=== PATIENT | male | born 1985 | race Hispanic/Latino ===

== ENCOUNTER 2019-09-23 11:51 | Inpatient (IN) | payer OTHER, SELFPAY ==
[2019-09-23] MEDS ORDERED: Adacel (T-DAP) 0.5 ML SYRINGE ONE (12:24)
[2019-09-23] MEDS ORDERED: Dextrose 50% Abboject 50 ML SYRINGE SLOW IVP PRN ×2 (13:27→19:45)
[2019-09-23] MEDS ORDERED: Ondansetron ODT 4 MG TAB PO PRN ×2 (13:27→19:48)
[2019-09-23] MEDS ORDERED: HumaLOG 300 UNITS/3 ML VIAL SC PRN ×2 (13:27→19:45)
[2019-09-23] MEDS ORDERED: Morphine 4 MG/ML VIAL SLOW IVP PRN ×2 (13:27→19:47)
[2019-09-23] MEDS ORDERED: hydrALAZINE 20 MG/ML VIAL SLOW IVP PRN ×2 (13:27→19:46)
[2019-09-23] MEDS ORDERED: Morphine 2 MG/ML SYRINGE SLOW IVP PRN ×2 (13:27→19:46)
[2019-09-23] MEDS ORDERED: Dextrose 5% in Water 1,000 ML IV PRN ×2 (13:27→19:44)
[2019-09-23] MEDS ORDERED: traMADol HCl 50 MG TAB PO PRN ×4 (13:32→19:50)
[2019-09-23] MEDS ORDERED: Morphine 4 MG/ML VIAL ONE (13:39)
[2019-09-23 13:43] LABS: #Basophils 0.1 thou/uL (0.0-0.2); #Eosinphils 0.2 thou/uL (0.0-0.7); #Lymphocytes 1.4 thou/uL (1.20-3.40); #Monocytes 0.5 thou/uL (0.11-0.59); #Neutrophils 4.6 thou/uL (1.40-6.50); %Basophils 1.5 % (0.0-1.0); %Eosinophils 2.4 % (0.0-10.0); %Lymphocytes 20.9 % (21.0-51.0); %Neutrophils 68.3 % (42.0-75.0); Hemoglobin 14.6 g/dL (14.0-18.0); Mean Corpuscular HGB CONC 34.1 g/dL (32.0-36.0); Mean Corpuscular Hemoglobin 31.9 pg (27.0-31.0); Mean Corpuscular Volume 93.6 fL (78.0-98.0); Mean Platelet Volume 8.3 fL (7.4-10.4); Platelet Count 229 thou/uL (130-400); RBC Distribution Width 11.8 % (11.5-14.5); White Blood Cell (WBC) Count 6.8 thou/uL (4.8-10.8)
[2019-09-23] MEDS ORDERED: CEFAZOLIN 1 GM VIAL SLOW IVP SCH (14:00)
[2019-09-23] MEDS ORDERED: Acetaminophen 500 MG TAB PO SCH (14:00)
[2019-09-23 14:05] LABS: ALT (SGPT) 21 U/L (8-55); AST (SGOT) 17 U/L (5-34); Albumin 4.2 g/dL (3.5-5.0); Alkaline Phosphatase 70 U/L (40-110); Anion Gap 16 mmol/L (10-20); BUN (Urea Nitrogen) 12 mg/dL (8.9-20.6); Bilirubin, Total 0.5 mg/dL (0.2-1.2); CK (CPK) 245 U/L (30-200); Calc. Creatinine Clearance 0 mL/min (70-130); Calcium 8.6 mg/dL (7.8-10.44); Carbon Dioxide 22 mmol/L (22-29); Chloride 105 mmol/L (98-107); Estimated GFR-MDRD 69; Globulin 2.4 g/dL (2.4-3.5); Glucose 137 mg/dL (70-105); Potassium 3.7 mmol/L (3.5-5.1); Protein, Total 6.6 g/dL (6.0-8.3); Sodium 139 mmol/L (136-145)
[2019-09-23] MEDS ORDERED: CEFAZOLIN 2 GM in Premix Bag 1 BAG IVPB SCH ×3 (15:00→20:00)
--- NOTE | 2019-09-23 15:17 | RAD ---
LEFT WRIST THREE VIEWS: 09/23/19 INDICATION: History of cutting left wrist at work. COMPARISON: None. FINDINGS: There is laceration involving the left wrist. No radiopaque foreign body is noted. No definite acute osseous abnormality is noted. IMPRESSION: Left wrist soft tissue laceration. No radiopaque foreign body. POS: BH
--- NOTE | 2019-09-23 15:17 | RAD ---
CHEST ONE VIEW: 09/23/19 INDICATION: History of cut left wrist with aluminum at work. COMPARISON: None. FINDINGS: The lungs are clear. Heart size is normal appearing. No pleural effusion or pneumothorax is evident. There is healed fracture deformity involving the right clavicle. IMPRESSION: No definite acute cardiopulmonary abnormality. POS: BH
--- NOTE | 2019-09-23 16:19 | CON ---
DATE OF CONSULTATION: This is Migel Baeza PA-C dictating a report for Dax Lunsford MD. DICTATED FOR: Gregorio Potts MD HISTORY OF PRESENT ILLNESS: We were asked by emergency room to see the patient. The patient was at work today. 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 Per exercise physiologist certified, he is a young male, who does not speak any Uzbek, so we have an exercise physiologist certified in the room. He is in quite a bit of pain, but no numbness and tingling to the fingers. 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 PAST MEDICAL HISTORY: Healthy. PAST SURGICAL HISTORY: Surgeries none. CURRENT MEDICATIONS: None. ALLERGIES: NO KNOWN DRUG ALLERGIES. SOCIAL HISTORY: No alcohol, nicotine, or illicit drug use. 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 FAMILY HISTORY: For this visit is noncontributory. REVIEW OF SYSTEMS: Healthy except for pain in left wrist on the volar side. Rest of review of systems negative. PHYSICAL EXAMINATION: GENERAL: Well-nourished, well-developed male, resting on the gurney in room 7, in moderate amount of distress. His speech per exercise physiologist certified is clear. Answers questions appropriately. He is alert and oriented x3. HEENT: Face symmetric. Tongue midline. NECK: Supple. Trachea midline. RESPIRATORY: Respiratory rate 16, in no acute distress. EXTREMITIES: Upper extremities equal size, shape, and symmetry. Normal bulk and tone with the exception of he does have a full-thickness avulsed flap to the volar wrist. It the area is quite painful to the patient, but it does appear that he has one tendon that is possibly severed. He has good strength sensations. 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 The patient does not tolerate the probing, removing the tissue on the wound very well. ASSESSMENT: Laceration to the volar left wrist with possible tendon disruption. PLAN: I spoke with Dr. Potts, I explained the patient's situation. He would like to have him admitted. I told Dr. Soto that he just needs a wet-to-dry dressing and a small splint and Dr. Potts will talk to the patient tonight and plan on doing surgery tomorrow. The patient has been consented. Antibiotics have been ordered since this was traumatic injury. Trauma has admitted the patient and placed orders. I did put orders in for the consent, some antibiotics prior to surgery. Again, Dr. Potts is going to talk to the patient this evening. He has already been added onto the surgery schedule. Job ID: [id number]
[2019-09-23] MEDS ORDERED: Ibuprofen 600 MG TAB PO SCH (18:00)
[2019-09-23] MEDS: Senokot S 8.6-50 MG TAB PO SCH (20:51)
[2019-09-23] MEDS: Acetaminophen 500 MG TAB PO SCH (20:51)
[2019-09-23] MEDS: Famotidine 20 MG TAB PO SCH (20:52)
[2019-09-23] MEDS: ceFAZolin 1 GM/D5W 1 GM in Premix Bag 1 BAG IVPB SCH ×2 (20:55→21:00)
[2019-09-23] MEDS ORDERED: Famotidine 20 MG TAB PO SCH (21:00)
[2019-09-23] MEDS ORDERED: Senokot S 8.6-50 MG TAB PO SCH (21:00)
[2019-09-23] MEDS ORDERED: ceFAZolin 1 GM/D5W 1 GM in Premix Bag 1 BAG IVPB SCH (22:00)
--- NOTE | 2019-09-23 22:14 | PRG ---
DATE OF SERVICE: 09/23/2019 SUBJECTIVE: The patient is currently on the surgical floor. He was admitted earlier today after he sustained a laceration to the volar surface of his left wrist that is currently planned for exploration by Dr. Potts tomorrow. At the time of visit, the patient was having some pain, but otherwise had no issues at this time. The patient is tolerating a diet this time, and he will be n.p.o. after midnight. OBJECTIVE: VITAL SIGNS: Stable. The patient is afebrile. GENERAL: The patient is resting comfortably in bed. He is awake, alert, conversant. He speaks just nothing listed, I was able to get through my exam with him. LUNGS: His respirations are nonlabored. ABDOMEN: Nondistended. EXTREMITIES: Neurovascularly intact x4. Left upper extremity has clean, dry, and intact dressing and splint. Capillary refill is less than 3 seconds. The patient has sensation in all of his digits and is able to give a thumbs up. ASSESSMENT AND PLAN: Status post laceration to left wrist, volar surface. PLAN: Plan will be to make the patient n.p.o. after midnight. Continue pain control, antibiotics per Hand Surgery, and postoperatively, we will evaluate for discharge. Job ID: [id number]
[2019-09-23] MEDS: Sodium Chloride 0.9% 1,000 ML IV SCH (23:40)
[2019-09-23] MEDS: Ibuprofen 600 MG TAB PO SCH (23:41)
[2019-09-24] MEDS ORDERED: Sodium Chloride 0.9% 1,000 ML IV SCH (00:01)
[2019-09-24] MEDS: ceFAZolin 1 GM/D5W 1 GM in Premix Bag 1 BAG IVPB SCH ×4 (00:22→18:01)
[2019-09-24] MEDS: Acetaminophen 500 MG TAB PO SCH ×3 (02:23→14:48)
--- NOTE | 2019-09-24 05:50 | HP ---
REQUESTING PHYSICIAN: Dr. Soto. CONSULTING PHYSICIAN: Dr. Potts. HISTORY OF PRESENT ILLNESS: Mr. Edge is a 34-year-old male, presented to the ED after an accident at work. The patient reports he was working with a metal sheet, where he accidentally got cut through his left wrist. Bleeding was medium, and upon arrival in the ED, bleeding has been stopped. The patient reports neurovascularly intact of the left finger. Vital signs have been stable. REVIEW OF SYSTEMS: Noncontributory except as per HPI. PAST MEDICAL HISTORY: None. PAST SURGICAL HISTORY: None. SOCIAL HISTORY: The patient drinks socially. Denies smoking. Denies drug use. CURRENT MEDICATIONS: None. ALLERGIES: ALLERGY TO MEDICATION NONE. PHYSICAL EXAMINATION: GENERAL: Currently, the patient lying in bed comfortably with no acute respiratory distress. VITAL SIGNS: Heart rate 57, respiratory rate 18, temperature 97.3, O2 saturation 99% on room air, and blood pressure 120/74. LUNGS: Clear bilaterally. HEART: Regular rate and rhythm. ABDOMEN: Soft, nondistended. EXTREMITIES: Left, there is a 4 to 5 cm clean cut of the distal volar side of forearm. Bleeding has been stopped. Full thickness, exposed some tendon sheath, bone is invisible. Neurovascularly intact of the left finger. Capillary refill of left finger is less than 2 seconds. Gross sensory intact. IMAGING: Left wrist x-ray, no fracture. LABORATORY DATA: Showed glucose 137, sodium 139, potassium 3.7. White count 6.8 and hemoglobin 14.6. ASSESSMENT: 1. Status post got cut by a piece of metal at work. 2. Full-thickness left wrist laceration. PLAN: The patient will be admitted to [place] [id number] for pain control, initiate gastritis prophylaxis, pulmonary toilet. Initiate nonpharmacological DVT prophylaxis. The patient will be n.p.o. at midnight. The patient will need to go to the OR with Dr. Potts for left wrist tendon fixation. Job ID: [id number]
[2019-09-24] MEDS: Sodium Chloride 0.9% 1,000 ML IV SCH ×2 (06:22→14:48)
[2019-09-24] MEDS: Ibuprofen 600 MG TAB PO SCH ×3 (06:25→18:01)
[2019-09-24 08:21] VITALS: BP 121/77
[2019-09-24] MEDS ORDERED: Polyethylene Glycol 3350 17 GM Packet PO SCH ×2 (09:00)
[2019-09-24] MEDS: Famotidine 20 MG TAB PO SCH (10:05)
[2019-09-24] MEDS: Senokot S 8.6-50 MG TAB PO SCH (10:05)
[2019-09-24] MEDS ORDERED: Fentanyl 100 MCG/2 ML VIAL ONE ×2 (10:50→13:42)
[2019-09-24] MEDS ORDERED: Midazolam HCl 2 mg/2 ml Vial ONE (10:50)
[2019-09-24] MEDS ORDERED: Bacitracin Zinc Ointment 30 gm TUBE ONE (10:57)
[2019-09-24] MEDS ORDERED: Bupivacaine PF 0.5% 30 ML VIAL ONE (10:57)
[2019-09-24] MEDS ORDERED: Glycopyrrolate 0.2 MG/ML 5 ML SYRINGE ONE (11:44)
[2019-09-24] MEDS ORDERED: Dexamethasone 20 MG/5 ML VIAL ONE (11:44)
[2019-09-24] MEDS ORDERED: Lidocaine 1% PF 5 ML VIAL ONE (11:44)
[2019-09-24] MEDS ORDERED: Ondansetron PF 4 MG/2 ML Vial ONE (11:44)
[2019-09-24] MEDS ORDERED: PROPOFOL 200 MG/20 ML VIAL ONE (11:44)
[2019-09-24] MEDS ORDERED: Ketorolac Tromethamine 30 MG/ML VIAL ONE (11:44)
[2019-09-24] MEDS ORDERED: Succinylcholine Chloride 20 MG/ML 10 ml SYRINGE FS ONE (11:44)
[2019-09-24] MEDS ORDERED: Promethazine HCl 25 MG/ML VIAL SLOW IVP PRN (13:25)
[2019-09-24] MEDS ORDERED: Ondansetron HCl/PF 4 MG/2 ML Vial IVP PRN (13:25)
[2019-09-24] MEDS ORDERED: Promethazine HCl 25 MG/ML VIAL IM PRN (13:25)
--- NOTE | 2019-09-24 14:26 | EKG ---
Test Reason : Blood Pressure : / mmHG Vent. Rate : 077 BPM Atrial Rate : 077 BPM P-R Int : 154 ms QRS Dur : 100 ms QT Int : 370 ms P-R-T Axes : 039 063 002 degrees QTc Int : 418 ms Normal sinus rhythm Normal ECG Confirmed by NASH KENDRICK DO ([id number]), technical editor JANNETH KENT ([id number]) on 09/24/2019 2:25:27 PM Referred By: Confirmed By:NASH KENDRICK DO
[2019-09-24 16:11] VITALS: TEMP 97.3
--- NOTE | 2019-09-24 19:23 | OP ---
DATE OF PROCEDURE: 09/24/2019 PREOPERATIVE DIAGNOSES: 1. Median nerve neurapraxia, right wrist. 2. 5 cm laceration, right wrist with at least palmaris and flexor carpi radialis tendon laceration. POSTOPERATIVE DIAGNOSES: 1. Median nerve neurapraxia, right wrist. 2. 5 cm laceration, right wrist with at least palmaris and flexor carpi radialis tendon laceration. FINDINGS: 1. Median nerve intact to include the primary palmar cutaneous sensory branch. 2. Complete palmaris longus and flexor carpi radialis laceration just proximal to the carpal tunnel. PROCEDURES PERFORMED: 1. Median nerve neuroplasty. 2. Application of short-arm splint. 3. Wound debridement, depth down to including tendon, but not bone or joint (59855) level. 4. 5 cm wound closure. 5. Repair of palmaris longus and flexor carpi radialis tendons using 6-strand technique. DESCRIPTION OF PROCEDURE: After patient had been counseled to include a Welsh speech language assistant, he was brought to the operating room, where he underwent prep and drape and a time-out was done appropriately. We exsanguinated the limb, inflated tourniquet to 250 mmHg pressure. On exam, he had not had FPL, FDS, FDP laceration , but immediately we performed median nerve neuroplasty and saw that he had 100% laceration in palmaris longus and flexor carpi radialis in between the median nerve was buried underneath the flexor digitorum muscle belly. These tendon levels were not violated as well. For this reason, we then debrided the wound edges using the following techniques: 1. A. Excisional technique. 2. B. Use of tenotomy scissors, Dunnell blade, 11 blade knife, Adson's, and 3 L normal saline irrigation. After this, the wound was clean. We then repaired first the palmaris longus and then the flexor carpi radialis with the wrist flexed to 20 degrees using Robe 6-strand technique, over-sew with a 5-0 Prolene with excellent apposition and no gapping to 30 degrees of extension. Wrist remained in slight palmar flexion. We released the tourniquet. We closed the wound with interrupted 4-0 nylon in a mattress pattern and the patient left the operating room in a splint with the wrist at 20 degrees of flexion, the MP joint full extension at the PIP and the MP joints at 45 degrees of flexion. His digits were pink. There was no evidence of anesthetic or operative complication. Job ID: [id number]
--- NOTE | 2019-09-27 05:43 | PQF ---
Daxa Edge DARRYL [id number] CLINICAL DOCUMENTATION CLARIFICATION FORM: POST DISCHARGE Addendum to original discharge summary date: ____ Late entry note date: __ DATE:09/27/2019 ATTN: Gregorio Diez Please exercise your independent, professional judgment in responding to the clarification form. Clinical indicators are provided on the bottom of this form for your review Please check appropriate box(s): Excisional Debridement: Depth / layer: (deepest layer of debridement): [ ] Skin[ ] SubQ Tissue [ ] Fascia [ ] Muscle [ ] Tendon [ ] Bone [ ] Other procedure diagnosis [ ] Unable to determine For continuity of documentation, please document condition throughout progress notes and discharge summary. Thank You. CLINICAL INDICATORS - SIGNS / SYMPTOMS / LABS Operative report 09/23 Wound debridement, depth down to including tendon, but not bone or joint Operative report 09/23 Had 00% laceration in palmaris longus and flexor or carpi radialis in between the median nerve was buried underneath the flexor digitorum muscle lorin, these tendon levels were not violated well. Operative report 09/23 debrided the wound edge using excisional technique RISK FACTORS H&P 09/22 34 year-old Male H&P p2 09/22 Full-thickness left wrist laceration Operative report p1 09/23 Median Nerve Neurapraxia, right wrist Operative report 09/23 5cm Laceration, right wrist with at least palmaris and flexor carpi radialis tendon laceration TREATMENT Operative report p1 09/23 Median nerve neuroplasty Operative report 09/23 Wound Debridement Operative report 09/23 Repair of palmaris longus and flexor carpi tendons JUL 27 IV Ancef 1gm JUL 28 IV Vancomycin JUL 28 Bactrim 30mg ointment (This form is maintained as a part of the permanent medical record) 2014 [employer]. All Rights Reserved [email or web address]
--- NOTE | 2019-09-27 05:44 | PQF ---
Daxa Edge DARRYL [id number] CLINICAL DOCUMENTATION CLARIFICATION FORM: POST DISCHARGE Addendum to original discharge summary date: ____ Late entry note date: __ DATE:09/27/2019 ATTN:Gregorio Diez Please exercise your independent, professional judgment in responding to the clarification form. Clinical indicators are provided on the bottom of this form for your review Please check appropriate box(s): Conflicting documentation was noted in the Medical Record, please clarify if patient is being treated/monitored for: [ ] Left Wrist Laceration [ ] Right Wrist Laceration [ ] Other diagnosis [ ] Unable to determine For continuity of documentation, please document condition throughout progress notes and discharge summary. Thank You. 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 Reports was working with a metal sheet, where he accidentally got cut hrough his left wrist Operative report 09/23 Median Nerve Neurapraxia, right wrist Operative report 09/23 5cm Laceration, right wrist with at least palmaris and Flexor carpi radialis tendon laceration Wrist Xray 09/22 Impression:Left wrist soft tissue laceration Consult pg 2 09/22 Laceration to the volar left wrist with possible tendon disruption H&P 09/22 dr colvin extremities:Left there is a 4 to 5 cm clean cut of the distal volar side of forearm RISK FACTORS H&P 09/22 34 year-old Male H&P p2 09/22 Full-thickness left wrist laceration TREATMENT Operative report p1 09/23 Median nerve neuroplasty Operative report 09/23 Wound Debridement Operative report 09/23 Repair of palmaris longus and flexor carpi tendons MAR 4/30 IV Ancef 1gm MAR 09/23 IV Vancomycin MAR 09/23 Bactrim 30mg oitment Collected 09/22- Wrist Xray (This form is maintained as a part of the permanent medical record) 2014 [employer]. All Rights Reserved [email or web address]
--- NOTE | 2019-09-27 09:20 | DIS ---
DATE OF ADMISSION: 09/23/2019 DATE OF DISCHARGE: 09/24/2019 ADMISSION DIAGNOSES: 1. Status post metal cut of the left wrist. 2. Median nerve neurapraxia of the left wrist. 3. 5 cm laceration of the left wrist. DISCHARGE DIAGNOSES: 1. Status post metal cut on the left wrist at work. 2. Median nerve neurapraxia of the left wrist. 3. 5 cm laceration with at least palmaris and flexor carpi radialis tendon laceration of the left wrist, status post repair. CONSULTING PHYSICIAN: Dr. Potts. PROCEDURES PERFORMED: 1. Left wrist median nerve neuroplasty. 2. Wound debridement. 3. 5 cm of left wrist wound closure. 4. Repair of palmaris longus and flexor carpi radialis tendons. HOSPITAL COURSE: Mr. Edge is a 34-year-old male, Emirati speaking, who was injured at work. The patient reports he was working with a piece of sharp metal. The sharp metal accidentally cut his volar side of his left wrist, injured medial nerve and tendon. The patient underwent median nerve neuroplasty and palmaris tendon fixation, and also, wound debridement and closure with Dr. Potts. The patient tolerated procedure well. Postoperatively, the patient is doing good. Pain is well controlled. His left hand function is almost normal. Gross sensory intact. The patient tolerated with his regular diet. His vital signs are stable. His urine is adequate. He is approved to discharge home per Dr. Potts. PHYSICAL EXAMINATION: GENERAL: The patient is lying down in bed, comfortable with no acute respiratory distress. VITAL SIGNS: Temperature 97.3, heart rate 63, respiratory rate 18, O2 saturation 99% on room air, blood pressure 121/77. LUNGS: Clear bilaterally. HEART: Regular rate and rhythm. ABDOMEN: Soft and nondistended. EXTREMITIES: Neurovascularly intact x4. Left upper extremity gross sensory intact, and capillary refill is less than 2 seconds. DISCHARGE DISPOSITION: Home. DISCHARGE CONDITION: Good. DISCHARGE INSTRUCTIONS: The patient is to take medications as directed. The patient is to take back treatment for 6 days, pain medication p.r.n. The patient is to see Dr. Potts on September 29, at 11:30 a.m. DISCHARGE MEDICATIONS: 1. Bactrim 1 tablet b.i.d. for 6 days. 2. Tylenol No. 3 one tablet every 6 hours p.r.n. for pain. 3. Tylenol and ibuprofen p.r.n. for pain. Job ID: [id number]
--- NOTE | 2019-10-03 19:26 | OP ---
DATE OF PROCEDURE: 09/24/2019 He has a report number already done of [id number]. I would like to make correction to that report as follows: 1. Everywhere the word right appears to be changed to the left that would be in the preop diagnosis, median nerve neurapraxia change to left wrist. 2. 5 cm laceration change to left wrist. Under postop diagnosis, change 1 and 2 right to the left and that may be the only place where the site actually appears. Job ID: [id number]
== END 2019-09-24 19:40 | disposition home or self-care (01) | DRG 502 ==
LOC: ERS 11:51 → SURG A 13:32 → ERS 15:39
PROVIDERS: ADMIT Surgery; ATTEND Surgery
PROC: 0LQ80ZZ Repair Left Hand Tendon, Open Approach (ICD-10-PCS; principal; 2019-09-24)
PROC: 01Q50ZZ Repair Median Nerve, Open Approach (ICD-10-PCS; 2019-09-24)
PROC: 0XBH0ZZ Excision of Left Wrist Region, Open Approach (ICD-10-PCS; 2019-09-24)
DX: S66.822A Laceration of other specified muscles, fascia and tendons at wrist and hand level, left hand, initial encounter (principal); S64.12XA Injury of median nerve at wrist and hand level of left arm, initial encounter; W26.8XXA Contact with other sharp object(s), not elsewhere classified, initial encounter; Y92.69 Other specified industrial and construction area as the place of occurrence of the external cause
CPT/HCPCS: 36415; 71045; 80053; 82550; 85025; 86850; 86900; 86901; 90471; 90715; 93005; 96365; 96366; 96375; J0690; J1100; J1885; J2001; J2250; J2270; J2405; J2704; J3010; J3370; S0020